=== PATIENT | female | born 1985 | race Native Hawaiian/Other Pacific Islander ===

== ENCOUNTER 2017-01-13 | Outpatient (CLI) | payer MEDICAID ==
[2017-01-13 00:33] VITALS: BP 123/73
[2017-01-13] MEDS ORDERED: VISTARIL PO ONE (02:34)
== END 2017-01-13 03:09 | disposition home or self-care (01) ==
LOC: TRG
PROVIDERS: ATTEND Obstetrics & Gynecology
DX: O99.333 Smoking (tobacco) complicating pregnancy, third trimester (principal); O48.0 Post-term pregnancy; Z3A.40 40 weeks gestation of pregnancy
CPT/HCPCS: 59025; Q0177

== ENCOUNTER 2017-03-05 09:20 | Day surgery (SDC) | payer MEDICAID ==
[2017-03-03 10:55] LABS: Basophils % (Auto) 1.3 % (0.0-1.8); Eosinophils % (Auto) 1.5 % (0.0-4.3); Hematocrit 37.7 % (30.3-42.9); Hemoglobin 12.6 gm/dl (10.1-14.3); Mean Corpuscular HGB Conc 34 % (30-34); Mean Corpuscular Hemoglobin 32 pg (28-32); Mean Corpuscular Volume 95 fl (79-97); Platelet Count 169 K/mm3 (140-440); Red Blood Count 3.96 M/mm3 (3.65-5.03); Red Cell Distribution Width 12.4 % (13.2-15.2); White Blood Count 6.4 K/mm3 (4.5-11.0)
--- NOTE | 2017-03-03 21:49 | History and Physical Report ---
History of Present Illness Date of examination: 03/02/17 History of present illness: Patient desires sterilization.Discuss the permanency of sterilization. High risk of regret and 0.5 to 1% risk of failure. Discussed the different risk of abdominal versus vaginal approaches Patient desires laparoscopic tubal ligation Vital Signs: Patient Profile: 32 Years Old Female Height: 66.5 inches (168.91 cm) Weight: 159 pounds (72.27 kg) BMI: 25.28 BSA: 1.83 BP sittin / 62 (right arm) Vitals Entered By: Maria Teresa Nava (March 02, 2017 11:09 AM) Menstrual History: LMP - Character: normal, Current Method of Contraception: BTL Past History : 5 Term Births: 4 Premature Births: 0 Living Children: 4 Para: 4 Mult. Births: 0 Prev : 0 Prev. attempt? 0 Aborta: 1 Elect. Ab: 0 Spont. Ab: 1 Ectopics: 0 # 1 Delivery date: 10/21/2004 Weeks Gestation: 40 Delivery type: Hours of labor: >12 Anesthesia type: epidural Delivery location: [place] Sex: Female weight: 7lbs0 oz Name: Clara # 2 Delivery date: 04/13/2006 Weeks Gestation: 7 Delivery type: sab weight: 7lbs 1oz Comments: No D&C # 3 Delivery date: 12/31/2007 Weeks Gestation: 37 Delivery type: Hours of labor: 6 Anesthesia type: none Delivery location: [facility] Sex: Male weight: 7lbs 1oz Name: Alessio # 4 Delivery date: 09/13/2009 Weeks Gestation: 39+6 Delivery type: Vaginal Anesthesia type: epidural Delivery location: [facility] Sex: male weight: 7.81 # 5 Delivery date: 01/15/2017 Weeks Gestation: 40 Delivery type: Vaginal Delivery location: [facility] Sex: female weight: 7.63 Name: Romaine Comments: bleeding [employer] History Operations: Right wrist fracture (2014) Abnormal PAP: negative Uterine Anomaly: negative Infection History HIV Risk Eval: no Personal hx. of genital herpes: no Partner hx. of genital herpes: no Hx of STD: chlamydia Current Allergies (reviewed today): No known allergies Past Medical History: Negative Past Medical History Past Surgical History: Right wrist fracture (2014) Family History Summary: Reviewed history Last on 06/23/2016 and no changes required:03/03/2017 Other family member - Has No Family History of Breast Cancer - Entered On: 06/23 Other family member - Has No Family History of Colon Cancer - Entered On: 2015 Other family member - Has Family History of Ovarian Cancer - Entered On: 2015 Risk Factors: Smoked Tobacco Use: Current every day smoker Smokeless Tobacco Use: Never Passive smoke exposure: no Drug use: no HIV high-risk behavior: no Alcohol use: no Exercise: no Seatbelt use: 100 % Review of Systems General Denies fever, chills, sweats, anorexia, fatigue, weakness, malaise, weight loss and sleep disorder. Denies vaginal discharge, incontinence, dysuria, hematuria, urinary frequency, amenorrhea, menorrhagia, abnormal vaginal bleeding, pelvic pain, genital sores, decreased libido, painful periods, painful sex, urinary urgency, hot flashes, vaginal dryness, vaginal itching and vaginal odor. CV Denies chest pains, palpitations, syncope, dyspnea on exertion, orthopnea, PND and peripheral edema. Resp Denies cough, dyspnea at rest, excessive sputum, hemoptysis, wheezing and pleurisy. GI Denies nausea, vomiting, diarrhea, constipation, change in bowel habits, abdominal pain, melena, hematochezia, jaundice, gas/bloating, indigestion/ heartburn, dysphagia and odynophagia. Breast Denies left breast lump, right breast lump, nipple discharge, bloody discharge from nipple, breast pain, abnormal mammogram and breast enlargement. Psych Denies depression, anxiety, irritability and mood swings. Past History Past Medical History: other (See HPI) Past Surgical History: Other (See HPI) Social history: IV drug use, other (See HPI) Family history: other (See HPI) Medications and Allergies Allergies Allergy/AdvReac Type Severity Reaction Status Date / Time No Known Allergies Allergy Verified 03/05/17 10:02 Home Medications Medication Instructions Recorded Confirmed Last Taken Type Vit No.130/Iron/FA 1 tab PO DAILY 01/14/17 03/02/17 03/04/17 History [ Tablet] Ferrous Sulfate [Feosol 325 MG tab] 325 mg PO BID #60 tablet 01/16/17 03/02/17 03/04/17 Rx Review of Systems Constitutional: other (See HPI) Exam - Physical Exam Narrative exam: HEENT: normocephalic, no lesions or deformities Lip piercing present Neck/Thyroid: supple, thyroid normal Skin no abnormal lesions or rashes Chest: respiratory effort normal, clear to auscultation Breasts: skin/areolae normal, no masses, no nipple discharge, no erythema/warmth /tenderness, and axillae normal. CV: regular, normal S1-S2, no murmur, no rub, no gallop Abdomen: normal bowel sounds; soft, nontender Musculoskeletal: grossly normal ROM in joints, no joint tenderness or muscle weakness Neuro: no gross anomalities Extremities: no discoloration or edema [employer] Exams Vulva/Vagina: No lesions, normal BUS, normal rugae Cervix: No lesions; no cervical motion tenderness Uterus: normal size and position, midline, mobile Adnexae: no masses or tenderness Rectovaginal: exam defered Results - Labs CBC & Chem 7: 03/03/17 10:35 Labs: Abnormal lab results 03/03/17 Range/Units 10:35 RDW 12.4 L (13.2-15.2) % Lymph % (Auto) 36.3 H (13.4-35.0) % Assessment and Plan - Patient Problems (1) Encounter for sterilization Current Visit: Yes Status: Acute Plan to address problem: Discuss the risks of the surgery including infection, bleeding possibly heavy enough to require a blood transfusion, possible damage to adjacent organs. Discuss permanent nature of the procedure and the 1% failure rate. Discuss of possibility of laparotomy needed
[2017-03-05] MEDS ORDERED: NACL BACTERIOSTATIC INFILTRATI ONE (10:11)
--- NOTE | 2017-03-05 10:21 | Anesthesia Consultation ---
Anesthesia Consult and Med Hx Date of service: 03/05/17 - Airway Anesthetic Teeth Evaluation: Good ROM Head & Neck: Adequate Mental/Hyoid Distance: Adequate Mallampati Class: Class II Intubation Access Assessment: Probably Good - Pulmonary Exam CTA: Yes - Cardiac Exam Cardiac Exam: RRR - Pre-Operative Health Status ASA Pre-Surgery Classification: ASA2 Proposed Anesthetic Plan: General - Pulmonary Hx Smoking: Yes Hx Asthma: Yes (as child) COPD: No Hx Pneumonia: No - Cardiovascular System Hx Hypertension: No - Central Nervous System Hx Seizures: No Hx Psychiatric Problems: No - Endocrine Hx Renal Disease: No Hx End Stage Renal Disease: No Hx Hypothyroidism: No Hx Hyperthyroidism: No - Hematic Hx Anemia: Yes Hx Sickle Cell Disease: No - Other Systems Hx Alcohol Use: No Hx Cancer: No
--- NOTE | 2017-03-05 10:21 | Anesthesia Day of Surgery ---
Anesthesia Day of Surgery - Day of Surgery Patient Examined: Yes Patient H&P Reviewed: Yes Patient is NPO: Yes
[2017-03-05] MEDS ORDERED: VERSED IV NR (11:00)
[2017-03-05] MEDS ORDERED: TORADOL IV PRN (11:00)
[2017-03-05] MEDS ORDERED: ZOFRAN IV PRN (11:00)
[2017-03-05] MEDS ORDERED: PEPCID PO NR (11:00)
[2017-03-05] MEDS ORDERED: LACTATED RINGERS 1,000 ML IV SCH (11:00)
[2017-03-05] MEDS ORDERED: ZOFRAN ONE (11:31)
[2017-03-05] MEDS ORDERED: BLOXIVERZ ONE (11:31)
[2017-03-05] MEDS ORDERED: DECADRON ONE (11:31)
[2017-03-05] MEDS ORDERED: XYLOCAINE MPF 2% ONE (11:31)
[2017-03-05] MEDS ORDERED: ZEMURON IV ONE (11:31)
[2017-03-05] MEDS ORDERED: ROBINUL ONE ×2 (11:31)
[2017-03-05] MEDS ORDERED: DIPRIVAN 10 MG/ML IV ONE (11:33)
[2017-03-05] MEDS ORDERED: SUBLIMAZE ONE (11:33)
[2017-03-05] MEDS ORDERED: MARCAINE 0.5% 30 ML INFILTRATI ONE (11:37)
[2017-03-05] MEDS ORDERED: QUELICIN ONE (11:53)
[2017-03-05] MEDS ORDERED: TORADOL ONE (12:12)
[2017-03-05] MEDS ORDERED: DILAUDID ONE (12:16)
[2017-03-05] MEDS ORDERED: MARCAINE 0.5% INFILTRATI ONE (12:23)
[2017-03-05] MEDS ORDERED: NACL 0.9% IR ONE (12:24)
[2017-03-05] MEDS ORDERED: PERCOCET 5/325 PO PRN (12:58)
[2017-03-05] MEDS: DILAUDID IV PRN ×2 (12:59→13:25)
--- NOTE | 2017-03-05 13:03 | Short Stay Summary ---
Short Stay Documentation Date of service: 03/05/17 - History H&P: dictated Past Medical History: other (See HPI) Past Surgical History: Other (See HPI) Social history: IV drug use, other (See HPI) - Allergies and Medications Current Medications: Allergies No Known Allergies Allergy (Verified 03/05/17 10:02) Home Medications Medication Instructions Recorded Confirmed Last Taken Type Vit No.130/Iron/FA 1 tab PO DAILY 01/14/17 03/02/17 03/04/17 History [ Tablet] Ferrous Sulfate [Feosol 325 MG tab] 325 mg PO BID #60 tablet 01/16/17 03/02/17 03/04/17 Rx oxyCODONE /ACETAMINOPHEN [Percocet 1 - 2 tab PO Q4H PRN #30 tablet 03/05/17 Unknown Rx 5/325 mg] Active Medications Famotidine (Pepcid) 20 mg PO PREOP NR Stop: 03/05/17 13:00 Last Admin: 03/05/17 11:16 Dose: 20 mg Hydromorphone HCl (Dilaudid) 0.5 mg IV Q10MIN PRN PRN Reason: Pain , Severe (7-10) Stop: 03/05/17 13:00 Lactated Ringer's (Lactated Ringers) 1,000 mls @ 100 mls/hr IV DIRECT SCARLETT Last Admin: 03/05/17 11:18 Dose: 100 mls/hr Midazolam HCl (Versed) 2 mg IV PREOP NR Stop: 03/05/17 23:59 - Brief post op/procedure progress note Date of procedure: 03/05/17 (the dictated op note) Condition: stable - Hospital course Hospital course: Patient was admitted underwent the above him procedure without any complications. Patient will be discharged with follow-up in office in 1-2 weeks for postop check. - Disposition Condition at discharge: Good Disposition: DC-01 TO HOME OR SELFCARE - Discharge Diagnoses (1) Encounter for sterilization Status: Acute Short Stay Discharge Plan Activity: advance as tolerated Diet: regular Wound: open to air Additional Instructions: PUMP AND DISCARD BREAST MILK FOR 24 HOURS. Follow up with: GERARD ZAVALA MD [Primary Care Provider] - 7 Days Prescriptions: oxyCODONE /ACETAMINOPHEN [Percocet 5/325 mg] 1 - 2 tab PO Q4H PRN #30 tablet PRN Reason: Pain, Moderate
[2017-03-05] MEDS ORDERED: TRANSDERM-SCOP TD ONE (13:05)
--- NOTE | 2017-03-05 13:05 | Operative Report ---
Operative Report Operative Report: Pre-operative diagnosis: Patient desires permanent sterilization Post-operative diagnosis: Same Procedure name(s): Laparoscopic bilateral tubal ligation with Falope-Rings Surgeon: Abran Barrera MD [employer] Technician: [] Anesthesia: General endotracheal EBL: Minimal Complications: None Findings: Patient with uterus approximately 8-10 weeks in size and normal fallopian tubes bilaterally Specimen(s): None Patient was brought in the operating room. General anesthesia was induced without difficulty. She was placed in dorsal lithotomy position. Prepped and draped in usual sterile manner. Her urinary bladder with was emptied with a red rubber catheter. Speculum placed in her vagina and Sargis uterine manipulator was placed for uterine manipulation. Attention was then switched to the patient's abdomen. An infra-umbilical incision was made with a scalpel. This incision was spread with a hemostat. A 5 mm trocar was placed in this incision while lifting high the abdominal wall. Intra-abdominal presence was verified directly with the laparoscope. The patient was then insufflated to approximately 3 L of CO2 gas. The patient's findings as noted above. An accessory puncture was made suprapubically. The 8 mm trocar was placed through this incision under direct visualization with no evidence of internal organ damage. Each of the fallopian tube were identified by its fimbriated end. A portion approximately 1-2 cm from each cornua was grasped with the Falope ring applicator. Falope-Rings were placed without any difficulty bilaterally. At this time all instruments were removed. The patient was insufflated. The skin incisions were closed subcuticular with 4-0 Vicryl. Marcaine was given subcuticularly for postoperative pain relief. The patient tolerated procedure well. She was awakened in the operating room and accompanied to the recovery room in good condition.
--- NOTE | 2017-03-05 13:34 | Post Anesthesia Evaluation ---
- Post Anesthesia Evaluation Patient Participated: Yes Airway Patent: Yes Stable Respiratory Function: Yes Nausea/Vomiting: No Temp > 96.8F: Yes Pain Manageable: Yes Adequeate Hydration: Yes Anesthesia Complications: No Block Receding Appropriately: Not Applicable Patient on Ventilator: No
[2017-03-05] MEDS ORDERED: DEMEROL IV PRN (14:00)
[2017-03-05 15:20] VITALS: BP 125/78
== END 2017-03-05 15:07 | disposition home or self-care (01) ==
LOC: OR 09:20
PROVIDERS: ATTEND Obstetrics & Gynecology
DX: Z30.2 Encounter for sterilization (principal); J45.909 Unspecified asthma, uncomplicated; D64.9 Anemia, unspecified; F17.200 Nicotine dependence, unspecified, uncomplicated; Z79.899 Other long term (current) drug therapy; Z98.890 Other specified postprocedural states; Z80.41 Family history of malignant neoplasm of ovary
CPT/HCPCS: 36415; 58671; 84703; 85025; J1100; J1170; J1885; J2175; J2405; J2704; J2710; J3010; J7120; J0330; J2250